=== PATIENT | male | born 1995 | race Caucasian/White ===

== ENCOUNTER 2025-01-14 08:13 | Emergency (ER) | payer OTHER ==
[~2025-01-14] VITALS: Ht 187.9 cm; Wt 116.6 kg
[2025-01-14] MEDS ORDERED: NAPROSYN500 MG PO (09:14)
[2025-01-14] MEDS ORDERED: Ketorolac Tromethamine 30 MG/ML VIAL IM ONE (09:15)
== END 2025-01-14 09:16 | disposition home or self-care (01) ==
LOC: ED 08:13
DX: S82.832A Other fracture of upper and lower end of left fibula, initial encounter for closed fracture (principal); S83.92XA Sprain of unspecified site of left knee, initial encounter; W20.8XXA Other cause of strike by thrown, projected or falling object, initial encounter; Y93.89 Activity, other specified; Y92.89 Other specified places as the place of occurrence of the external cause; Y99.0 Civilian activity done for income or pay